=== PATIENT | female | born 1985 | race Two or more races ===

== ENCOUNTER 2021-02-11 13:38 | Emergency (ER) | payer MEDICAID ==
[~2021-02-11] VITALS: Ht 157.5 cm; Wt 65.5 kg
[2021-02-11] MEDS ORDERED: IBUP-1506 PO (13:46)
[2021-02-11] MEDS ORDERED: ACETAMINOPHEN 500 MG TABLET PO ONE (16:45)
[2021-02-11] MEDS ORDERED: PB/HYOSCY/ATR/SCOP/LIDO/MAALOX 55 ML BOTTLE PO ONE (16:45)
[2021-02-11 18:54] VITALS: BP 114/66
== END 2021-02-11 19:10 | disposition home or self-care (01) ==
LOC: EMS 13:38
DX: J03.90 Acute tonsillitis, unspecified (principal); F12.90 Cannabis use, unspecified, uncomplicated; Z88.5 Allergy status to narcotic agent; Z79.899 Other long term (current) drug therapy; Z20.822 Contact with and (suspected) exposure to COVID-19
CPT/HCPCS: 87081; 99283; U0003

== ENCOUNTER 2024-08-18 17:22 | Emergency (ER) | payer MEDICAID ==
[~2024-08-18] VITALS: Ht 157.5 cm; Wt 78.0 kg
[~2024-08-18 17:22] MED LIST: IBUP-1506 PO
[2024-08-18 17:28] VITALS: BP 128/70; PULSE 65; RESP 18; TEMP 97.4; O2SAT 100
[2024-08-18 19:25] LABS: BASOPHILS % (AUTO) 0.5 % (0.0-2.0); EOSINOPHILS % (AUTO) 3.2 % (1.0-6.0); HEMATOCRIT 36.5 % (36-46); HEMOGLOBIN 11.9 g/dL (12.0-16.0); LYMPHOCYTES % (AUTO) 37.2 % (22.0-44.0); MEAN CORPUSCULAR HEMOGLOBIN 31.4 pg (26.0-34.0); MEAN CORPUSCULAR HGB CONC 32.6 G/dL (31.0-37.0); MEAN CORPUSCULAR VOLUME 96 fL (80-100); MONOCYTES # (AUTO) 0.5 K/uL (0.1-1.0); NEUTROPHILS # (AUTO) 2.7 K/uL (1.8-7.7); NEUTROPHILS % (AUTO) 49.1 % (40.0-70.0); PLATELET COUNT (AUTO) 171 K/uL (150-450); RED CELL DISTRIBUTION WIDTH 13.3 % (11.5-14.5); WHITE BLOOD COUNT (AUTO) 5.4 K/uL (4.5-11.0)
[2024-08-18 19:29] LABS: ANION GAP 9 mmol/L (8-16); CALCIUM, TOTAL 8.7 mg/dL (8.8-10.5); CARBON DIOXIDE 26 mmol/L (22-29); CHLORIDE 105 mmol/L (98-107); CREATININE 0.87 mg/dL (0.60-1.30); GLOMERULAR FILTR. RATE CALC > 60 mL/min (>60); GLUCOSE,RANDOM 91 mg/dL (70-110); POTASSIUM 4.3 mmol/L (3.5-5.1); SODIUM SERUM 140 mmol/L (136-145); UREA NITROGEN, BLOOD 15 mg/dL (7-18)
[2024-08-18 19:41] LABS: TROPONIN I-HIGH SENSITIVITY 4 ng/L (<51)
[2024-08-18] MEDS: KETOROLAC TROMETHAMINE 30 MG/ML VIAL IM ONE (21:59)
== END 2024-08-18 22:09 | disposition home or self-care (01) ==
LOC: EMS 17:22
DX: R07.89 Other chest pain (principal); F17.210 Nicotine dependence, cigarettes, uncomplicated; Z88.5 Allergy status to narcotic agent
CPT/HCPCS: 99285; 71045; 80048; 84484; 84703; 85025; 36415; 93005; 96372; J1885